=== PATIENT | female | born 1995 | race Caucasian/White ===

== ENCOUNTER → 2017-01-28 | Outpatient (CLI) | payer OTHER ==
[2017-01-28 09:40] LABS: BILIRUBIN,URINE NEGATIVE (NEGATIVE); BLOOD/HEMOGLOBIN,URINE 1+ (NEGATIVE); GLUCOSE, URINE NEGATIVE (NEGATIVE); KETONES,URINE 3+ (NEGATIVE); LEUKOCYTE ESTERASE ,URINE 1+ (NEGATIVE); NITRITES,URINE NEGATIVE (NEGATIVE); PROTEIN,URINE 2+ (NEGATIVE); UROBILINOGEN,URINE NORMAL (NORMAL)
[2017-01-28 09:41] LABS: BASOPHILS % (AUTO) 0.1 % (0.2-1.0); EOSINOPHILS # (AUTO) 0.1 x10^3/uL (0.0-0.2); EOSINOPHILS % (AUTO) 0.9 % (0.9-2.9); HEMOGLOBIN 11.8 g/dL (12.0-16.0); LYMPHOCYTES # (AUTO) 1.6 X10^3/uL (1.3-2.9); LYMPHOCYTES % (AUTO) 16.1 % (21.0-51.0); MEAN CORPUSCULAR HEMOGLOBIN 27.9 pg (27.0-34.0); MEAN CORPUSCULAR HGB CONC 33.7 g/dL (33.0-35.0); MEAN CORPUSCULAR VOLUME 82.9 fL (80.0-100.0); MEAN PLATELET VOLUME 11.5 fL (7.4-11.0); MONOCYTES # (AUTO) 0.5 x10^3/uL (0.3-0.8); MONOCYTES % (AUTO) 4.8 % (0.0-13.0); NEUTROPHILS # (AUTO) 7.9 x10^3/uL (2.2-4.8); NEUTROPHILS % (AUTO) 78.1 % (42.0-75.0); PLATELET COUNT 116 X10^3/uL (150.0-450.0); RED BLOOD COUNT 4.23 X10^6/uL (3.5-5.4); RED CELL DISTRIBUTION WIDTH 15.1 % (11.6-16.5); WHITE BLOOD COUNT 10.1 X10^3/uL (3.6-10.0)
[2017-01-28 09:45] LABS: BLOOD UREA NITROGEN 6 mg/dL (7-18); CALCIUM 8.2 mg/dL (8.5-10.1); CARBON DIOXIDE 24.8 mmol/L (21-32); CHLORIDE 105 mmol/L (98-107); COR NA(FOR HYPERGLY) 138 mmol/L (136-145); CREATININE 0.68 mg/dL (0.55-1.02); GLUCOSE 112 mg/dL (65-99); SODIUM 138 mmol/L (136-145); eGFR BLACK RACES > 60 (>60); eGFR NON BLACK RACES > 60 (>60)
[2017-01-28 09:51] LABS: APPEARANCE,URINE HAZY (CLEAR); BACTERIA,URINE TRACE /HPF (NEGATIVE); COLOR,URINE YELLOW (YELLOW); RBC,URINE 0-2 /HPF (NEGATIVE); SQUAMOUS EPITHELIAL CELL,UR FEW /HPF (NEGATIVE)
== END ==
LOC: LAB 09:11
PROVIDERS: ATTEND Specialist
DX: Z01.818 Encounter for other preprocedural examination (principal); Z34.83 Encounter for supervision of other normal pregnancy, third trimester
CPT/HCPCS: 36415; 80048; 81001; 85025; 86592; 86850; 86900; 86901

== ENCOUNTER 2017-01-30 06:18 | Inpatient (IN) | payer OTHER ==
[2017-01-30] MEDS ORDERED: PITOCIN ONE (06:22)
[2017-01-30] MEDS ORDERED: NS 100 ML IV 100 ML IV ONE (06:22)
[2017-01-30] MEDS ORDERED: AMPICILLIN VIAL 2 GM ONE (06:22)
[2017-01-30] MEDS ORDERED: D5LR 1L W PITOCIN 10 UNITS/L 1,000 ML IV ONE (06:22)
[2017-01-30] MEDS ORDERED: D5 1/2 NS 1000ML W PITOCIN 20 U/L 1,000 ML IV ONE (06:23)
[2017-01-30] MEDS ORDERED: D5 1/2 NS 1000 ML 1,000 ML IV ONE (06:23)
[2017-01-30] MEDS ORDERED: AMPICILLIN VIAL 2 GM 2 GM in NS 100 ML IV + SPIKE MINIBAG* 100 ML IV SCH (06:36)
[2017-01-30] MEDS ORDERED: PHENERGAN INJ 25 MG IV PRN ×3 (06:36→13:04)
[2017-01-30] MEDS ORDERED: MORPHINE SULFATE INJ 2 MG IVP PRN (06:36)
[2017-01-30] MEDS ORDERED: REGLAN INJ 10 MG VIAL IVP PRN ×2 (06:36→13:04)
[2017-01-30] MEDS ORDERED: D5 1/2 NS 1000 ML 1,000 ML IV SCH (06:36)
[2017-01-30] MEDS ORDERED: PITOCIN 10 UNITS in D5 LR 1000 ML 1,000 ML IV PRN (06:36)
[2017-01-30] MEDS ORDERED: PITOCIN IVP ONE (06:36)
[2017-01-30] MEDS ORDERED: NUBAIN INJ 200 MG VIAL MULTIDOSE IVP PRN (06:36)
[2017-01-30] MEDS: AMPICILLIN VIAL 1 GM 1 GM in NS 50 ML IV + SPIKE MINIBAG* 50 ML IV SCH ×4 (06:40→11:00)
--- NOTE | 2017-01-30 07:12 | DR.OB ---
OB Quick Note - Assessment/Plan Assessment/Plan: L&D 01/30/17 at 6:55am S-No complaint. O-Afebrile,VSS PMH=715 with good LTV, +accel, no decel. CTX=none CVX=2-3cm/50%/-1/VTX AROM with clear fluid. IUPC and FSE placed. A-IUP at 39 0/7 weeks for induction +GBS P-Begin pitocin induction IV ABX in labor for +GBS Anticipate
[2017-01-30] MEDS ORDERED: LR 1000 ML IV 1,000 ML IV ONE ×2 (08:09→08:50)
[2017-01-30] MEDS ORDERED: NAROPIN EPIDURAL 0.2% + FENTANYL 90MCG 60 ML EPI ONE (08:10)
[2017-01-30] MEDS ORDERED: FENTANYL INJ 100 mcg ONE (08:13)
[2017-01-30] MEDS ORDERED: NAROPIN EPIDURAL 0.2% 97 ML with FENTANYL INJ 250 mcg 150 MCG EPI PRN ×2 (08:50)
[2017-01-30] MEDS ORDERED: BRETHINE INJ 1 MG VIAL ONE (09:14)
[2017-01-30] MEDS ORDERED: NS 50 ML IV + SPIKE MINIBAG* 50 ML IV ONE (09:57)
[2017-01-30] MEDS ORDERED: AMPICILLIN VIAL 1 GM ONE (09:57)
--- NOTE | 2017-01-30 12:16 | DR.OB ---
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 Head delivered over intact perineum. No nuchal cord. Nose and mouth bulb suctioned. Body delivered over intact perineum. Cord clamped x 2 and cut. Infant handed to attendant. Cord sent for gases. Placenta delivered over intact perineum. No CVX / vaginal / perineal tears. Viable female infant, VTX/OA, wt=6'1" and 9/9, stable to NBN. Mother stable to RR. RYR=[id number].
[2017-01-30] MEDS ORDERED: MOTRIN TAB 800 MG PO PRN (12:17)
[2017-01-30] MEDS ORDERED: D5 1/2 NS 1000 ML 1,000 ML with PITOCIN 20 UNITS IV SCH ×2 (13:00)
[2017-01-30] MEDS ORDERED: ADACEL TDaP IM ONE (13:04)
[2017-01-30] MEDS ORDERED: AMBIEN PO PRN (13:04)
[2017-01-30] MEDS ORDERED: MILK OF MAGNESIA PO PRN (13:04)
[2017-01-30] MEDS ORDERED: DERMOPLAST SPRAY TOP PRN (13:04)
[2017-01-30] MEDS: MOTRIN TAB 800 MG PO PRN (17:47)
[2017-01-30] MEDS: ZANTAC PO SCH (21:24)
[2017-01-30] MEDS: D5 1/2 NS 1000 ML 1,000 ML with PITOCIN 20 UNITS IV SCH ×2 (21:27)
[2017-01-31] MEDS: MOTRIN TAB 800 MG PO PRN ×3 (00:47→21:10)
[2017-01-31 05:21] LABS: HEMATOCRIT 30.9 % (36.0-47.0); HEMOGLOBIN 10.4 g/dL (12.0-16.0)
[2017-01-31] MEDS: D5 1/2 NS 1000 ML 1,000 ML with PITOCIN 20 UNITS IV SCH ×2 (06:16)
[2017-01-31] MEDS: ZANTAC PO SCH ×2 (08:53→21:09)
[2017-01-31] MEDS: PRENATAL PLUS PO SCH (08:53)
[2017-02-01] MEDS: ZANTAC PO SCH (09:01)
[2017-02-01] MEDS: PRENATAL PLUS PO SCH (09:01)
[2017-02-01] MEDS: MOTRIN TAB 800 MG PO PRN (12:05)
[2017-02-01 12:57] VITALS: BP 136/84
== END 2017-02-01 12:29 | disposition home or self-care (01) | DRG 775 ==
LOC: LD 06:18 → MED/SURG 13:46
PROVIDERS: ADMIT Specialist; ATTEND Specialist
PROC: 10E0XZZ Delivery of Products of Conception, External Approach (ICD-10-PCS; principal; 2017-01-30)
PROC: 10907ZC Drainage of Amniotic Fluid, Therapeutic from Products of Conception, Via Natural or Artificial Opening (ICD-10-PCS; 2017-01-30)
PROC: 3E033VJ Introduction of Other Hormone into Peripheral Vein, Percutaneous Approach (ICD-10-PCS; 2017-01-30)
PROC: 00HU33Z Insertion of Infusion Device into Spinal Canal, Percutaneous Approach (ICD-10-PCS; 2017-01-30)
PROC: 3E0234Z Introduction of Serum, Toxoid and Vaccine into Muscle, Percutaneous Approach (ICD-10-PCS; 2017-01-30)
DX: O99.824 Streptococcus B carrier state complicating childbirth (principal); Z37.0 Single live birth; Z3A.39 39 weeks gestation of pregnancy; B95.1 Streptococcus, group B, as the cause of diseases classified elsewhere; Z23 Encounter for immunization
CPT/HCPCS: 36415; 85014; 85018; A4216; A4222; S0197; J0290; J2590; J3010; J3105; J7042; J7120

== ENCOUNTER 2019-10-17 06:20 | Inpatient (IN) ==
[~2019-10-17 06:20] MED LIST: D5 1/2 NS 1000 ML 1,000 ML IV ONE; D5 1/2 NS 1L W PITOCIN 20 UNITS/L 20 UNITS/1,000 ML BAG IV ONE; FENTANYL INJ 100 mcg ONE; LR 1000 ML IV 1,000 ML IV ONE; NAROPIN EPIDURAL 0.2% + FENTANYL 90MCG 60 ML EPI ONE; PITOCIN ONE
[2019-10-17] MEDS ORDERED: NS 100 ML IV 100 ML IV ONE ×2 (06:30→10:41)
[2019-10-17] MEDS ORDERED: AMPICILLIN VIAL 2 GRAM ONE (06:31)
[2019-10-17] MEDS ORDERED: MORPHINE SULFATE INJ 2 MG INJ IVP PRN (06:40)
[2019-10-17] MEDS ORDERED: D5 1/2 NS 1000 ML 1,000 ML IV SCH (06:40)
[2019-10-17] MEDS ORDERED: REGLAN INJ 10 MG VIAL IVP PRN ×2 (06:40→17:55)
[2019-10-17] MEDS ORDERED: AMPICILLIN VIAL 2 GRAM 2 G in NS 100 ML IV + SPIKE MINIBAG* 100 ML IV SCH (06:40)
[2019-10-17] MEDS ORDERED: D5LR 1L W PITOCIN 10 UNITS/L 10 UNITS/1,000 ML BAG IV PRN (06:40)
[2019-10-17] MEDS ORDERED: NUBAIN INJ 200 MG VIAL MULTIDOSE IVP PRN (06:40)
[2019-10-17] MEDS ORDERED: PHENERGAN INJ 25 MG IM PRN ×3 (06:40→17:55)
[2019-10-17] MEDS ORDERED: PITOCIN IVP ONE (06:40)
--- NOTE | 2019-10-17 07:27 | DR.OB ---
OB Quick Note - Assessment/Plan Assessment/Plan: L&D 10/17/19 at 7:00am S-No complaint. O-Afebrile,VSS DIX=483 with good LTV, +accel, no decel. CTX=occasional, mild CVX=2cm/50%/-1/VTX AROM with clear fluid. IUPC and FSE placed. A-IUP at 39 0/7 weeks for induction Multiparity desiring permanent sterilization +GBS P-Begin pitocin induction IV ABX in labor for +GBS Anticipate with PP BTL
[2019-10-17] MEDS: VSL#3 PO SCH ×2 (08:39→09:46)
[2019-10-17] MEDS ORDERED: AMPICILLIN VIAL 1 GRAM 1 G in NS 50 ML IV + SPIKE MINIBAG* 50 ML IV SCH (10:30)
[2019-10-17] MEDS ORDERED: AMPICILLIN VIAL 1 GRAM ONE (10:42)
--- NOTE | 2019-10-17 12:07 | DR.OB ---
OB Quick Note - Assessment/Plan Assessment/Plan: L&D 10/17/19 at 11:55am Pitocin=18mu/min. Ampicillin S-No complaint. s/p epidural. O-Afebrile,VSS LHG=585 with good LTV, +accel, no decel. CTX=q 1 1/2 to 2 min., about 45-65mmHg CVX=7cm/75%/-1 A-IUP at 39 0/7 weeks for induction Multiparity +GBS P-Cont. pitocin induction Cont. IV ABX in labor Anticipate with PP BTL
[2019-10-17] MEDS ORDERED: D5 1/2 NS 1000 ML 1,000 ML with PITOCIN 20 UNITS IV SCH ×2 (15:00)
[2019-10-17] MEDS ORDERED: VERSED ONE (15:47)
[2019-10-17] MEDS ORDERED: ANCEF 1 GRAM IV PREMIX* 1 G/50 ML BAG IV ONE (15:53)
--- NOTE | 2019-10-17 16:03 | DR.OB ---
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 Head delivered over intact perineum. Nose and mouth bulb suctioned. No nuchal cord. Compound presentation with right hand at face noted. Body delivered over intact perineum. Cord clamped x 2 and cut. Infant handed to attendant. Cord sent for gases. Placenta delivered spontaneously / intact / 3 vessel cord. No CVX / vaginal / perineal tears noted. Viable female infant, VTX/OA, wt=6'15" and 9/9, stable to NBN. XGL=[id number].
[2019-10-17] MEDS ORDERED: XYLOCAINE 2% and EPINEPHRINE 1:100,000 ONE (17:05)
[2019-10-17] MEDS ORDERED: BENADRYL INJ 50 MG VIAL IVP PRN (17:55)
[2019-10-17] MEDS ORDERED: ZOFRAN INJ 4 MG VIAL IVP PRN (17:55)
[2019-10-17] MEDS ORDERED: DILAUDID INJ IVP PRN (17:55)
[2019-10-17] MEDS ORDERED: MYLICON TAB 80 MG CHEW PO PRN (18:19)
[2019-10-17] MEDS ORDERED: AMBIEN PO PRN ×2 (18:19)
[2019-10-17] MEDS ORDERED: DERMOPLAST PAIN RELIEF SPRAY TOP PRN (18:19)
[2019-10-17] MEDS ORDERED: MILK OF MAGNESIA PO PRN ×2 (18:19)
[2019-10-17] MEDS ORDERED: ADACEL or BOOSTRIX TDaP VACCINE IM ONE ×2 (18:19→21:37)
[2019-10-17] MEDS ORDERED: D5 1/2 NS 1L W PITOCIN 20 UNITS/L 20 UNITS/1,000 ML BAG IV ONE (18:21)
[2019-10-17] MEDS: MOTRIN TAB 800 MG PO PRN (19:15)
[2019-10-17] MEDS ORDERED: COLACE CAP 100 MG PO SCH (21:00)
[2019-10-18] MEDS: MOTRIN TAB 800 MG PO PRN (02:30)
[2019-10-18 05:37] LABS: HEMATOCRIT 34.5 % (36.0-47.0); HEMOGLOBIN 11.5 g/dL (12.0-16.0)
[2019-10-18] MEDS: PERCOCET TAB 5/325 MG PO PRN ×2 (06:00→14:13)
[2019-10-18] MEDS: VSL#3 PO SCH (09:00)
[2019-10-18] MEDS ORDERED: PRENATAL PLUS PO SCH (09:00)
[2019-10-18] MEDS ORDERED: PREVACID PO SCH (09:00)
[2019-10-18] MEDS: BACTROBAN CREAM TOP SCH ×2 (09:00→14:12)
[2019-10-18 12:21] VITALS: BP 121/85
== END 2019-10-18 13:00 | disposition home or self-care (01) | DRG 798 ==
LOC: LD 06:20 → MED/SURG 18:14 → UNDODISIN 10-18 15:55
PROVIDERS: ADMIT Specialist; ATTEND Specialist
DX: Z37.0 Single live birth; Z30.2 Encounter for sterilization; Z23 Encounter for immunization; O99.613 Diseases of the digestive system complicating pregnancy, third trimester; O99.824 Streptococcus B carrier state complicating childbirth; Z01.812 Encounter for preprocedural laboratory examination; B95.1 Streptococcus, group B, as the cause of diseases classified elsewhere